=== PATIENT | male | born 1990 | race American Indian/Alaskan Native ===

== ENCOUNTER 2018-03-07 08:18 | Outpatient (CLI) | payer OTHER ==
[2018-03-07] MEDS ORDERED: XYLOCAINE TOPICAL 4% TP ONE (08:31)
== END 2018-03-07 08:19 | disposition home or self-care (01) ==
LOC: WOUND 08:18
PROVIDERS: ATTEND Surgery
DX: L05.91 Pilonidal cyst without abscess (principal)
CPT/HCPCS: 99205; G0463

== ENCOUNTER 2018-03-14 08:31 | Outpatient (CLI) | payer OTHER ==
[2018-03-14] MEDS ORDERED: XYLOCAINE TOPICAL 4% TP ONE (08:41)
== END 2018-03-14 08:32 | disposition home or self-care (01) ==
LOC: WOUND 08:31
PROVIDERS: ATTEND Surgery
DX: L05.91 Pilonidal cyst without abscess (principal)
CPT/HCPCS: 99215; G0463

== ENCOUNTER 2018-04-04 08:17 | Outpatient (CLI) | payer OTHER ==
[2018-04-04] MEDS ORDERED: XYLOCAINE TOPICAL 4% TP ONE (08:19)
== END 2018-04-04 08:18 | disposition home or self-care (01) ==
LOC: WOUND 08:17
PROVIDERS: ATTEND Surgery
DX: L05.91 Pilonidal cyst without abscess (principal)
CPT/HCPCS: 99215; G0463

== ENCOUNTER 2018-04-11 08:19 | Outpatient (CLI) | payer OTHER ==
[2018-04-11] MEDS ORDERED: XYLOCAINE TOPICAL 4% TP ONE ×2 (08:41→09:00)
[2018-04-11] MEDS ORDERED: SILVER NITRATE TP ONE (09:00)
== END 2018-04-11 08:20 | disposition home or self-care (01) ==
LOC: WOUND 08:19
PROVIDERS: ATTEND Surgery
DX: L05.91 Pilonidal cyst without abscess (principal)
CPT/HCPCS: 99214; G0463

== ENCOUNTER 2018-04-25 08:38 | Outpatient (CLI) | payer OTHER ==
[2018-04-25] MEDS ORDERED: XYLOCAINE TOPICAL 4% TP ONE ×2 (08:50→09:59)
== END 2018-04-25 08:39 | disposition home or self-care (01) ==
LOC: WOUND 08:38
PROVIDERS: ATTEND Surgery
DX: L05.91 Pilonidal cyst without abscess (principal)
CPT/HCPCS: 99214; G0463

== ENCOUNTER 2018-05-02 08:57 | Outpatient (CLI) | payer OTHER ==
[2018-05-02] MEDS ORDERED: XYLOCAINE TOPICAL 4% TP ONE ×2 (09:01→09:25)
== END 2018-05-02 08:58 | disposition home or self-care (01) ==
LOC: WOUND 08:57
PROVIDERS: ATTEND Surgery
DX: L05.91 Pilonidal cyst without abscess (principal)
CPT/HCPCS: 99214; G0463

== ENCOUNTER 2018-05-16 08:52 | Outpatient (CLI) | payer OTHER ==
[2018-05-16] MEDS ORDERED: XYLOCAINE TOPICAL 4% TP ONE ×2 (09:08→12:00)
== END 2018-05-16 08:53 | disposition home or self-care (01) ==
LOC: WOUND 08:52
PROVIDERS: ATTEND Surgery
DX: L05.91 Pilonidal cyst without abscess (principal)

== ENCOUNTER 2018-06-20 08:15 | Outpatient (CLI) | payer OTHER | END 2018-06-20 08:16 | disposition home or self-care (01) | LOC: WOUND 08:15 | PROVIDERS: ATTEND Surgery | DX: L05.91 Pilonidal cyst without abscess (principal) | CPT/HCPCS: 99214; G0463 ==

== ENCOUNTER 2018-07-04 08:15 | Outpatient (CLI) | payer OTHER | END 2018-07-04 08:16 | disposition home or self-care (01) | LOC: WOUND 08:15 | PROVIDERS: ATTEND Surgery | DX: L05.91 Pilonidal cyst without abscess (principal) | CPT/HCPCS: 99213; G0463 ==